=== PATIENT | female | born 1950 | race Caucasian/White ===

== ENCOUNTER 2019-06-03 08:04 | Outpatient (CLI) | payer MEDICARE ==
--- NOTE | 2019-06-04 11:34 | NM ---
NUCLEAR MEDICINE THYROID SCAN AND UPTAKE: HISTORY: Nontoxic goiter. Examination was performed with the administration of a 235 mCi I-123 capsule administered orally. Th ere is a normal distribution of the radiopharmaceutical within the gland. No hot or cold nodules. T he right lobe measures 6.2 and the left 6 cm in length. The 6-hour uptake is 9.9% and the 24-hour uptake is 18.9%. The normal being 6-18 and 10-30% respecti vely. IMPRESSION: Unremarkable thyroid scan and uptake. POS: GINO
== END 2019-06-03 08:05 | disposition home or self-care (01) ==
LOC: NM 08:04
PROVIDERS: ATTEND Internal Medicine Endocrinology, Diabetes & Metabolism
DX: E04.9 Nontoxic goiter, unspecified (principal)
CPT/HCPCS: 78014; A9516